=== PATIENT | female | born 1990 | race Caucasian/White ===

== ENCOUNTER 2019-07-19 21:32 | Emergency (ER) | payer SELFPAY ==
[~2019-07-19] VITALS: Ht 162.6 cm; Wt 68.0 kg
[2019-07-19 22:17] VITALS: Ht 162.6 cm; Wt 68.0 kg
[2019-07-19 22:49] LABS: BASOPHILS 0.1 % (0-2); EOSINOPHILS 0.4 % (0-7); HEMOGLOBIN 13.1 g/dL (12-16); IMMATURE GRANULOCYTES 0.2 % (0-5); LYMPHOCYTES 11.6 % (15-50); MCH 29.2 pg (26.0-34.0); MCHC 33.6 g/dL (31.0-37.0); MCV 86.9 fL (80.0-100.0); MONOCYTES 4.5 % (2-11); NEUTROPHILS 83.2 % (40-80); PLATELET COUNT 312 10x3/uL (130-400); RBC 4.49 10x6/uL (4.00-5.40); RDW 14.5 % (11.5-14.5); WBC 11.2 10x3/uL (4.8-10.8)
[2019-07-19 22:57] LABS: ANION GAP 14.6 mmol/L (8-16); CALCIUM 8.9 mg/dL (8.5-10.1); CARBON DIOXIDE 23.8 mmol/L (21.0-32.0); POTASSIUM - SERUM 3.4 mmol/L (3.5-5.1)
[2019-07-19 23:04] LABS: ALBUMIN 4.2 g/dL (3.4-5.0); BILIRUBIN - TOTAL 0.67 mg/dL (0.2-1.3)
--- NOTE | 2019-07-19 23:16 | NUR ---
ATTEMPTED TO ASSESS PATIENT. CURRENTLY CAN NOT ASSESS PATIENT DUE TO IMPAIRED MENTAL STATUS. CAN NOT GIVE ANSWERS TO QUESTIONS. WILL TRY AND THEN WILL RELATE "I DON'T KNOW. I'M SORRY." MOANING, MOVING CONSTANTLY IN THE BED. JUMPING UP IN BED BECAUSE THE MONTOR LEADS WILL MOVE ON HER AND SHE WILL RELATE "WHAT IS IT? WHAT IS THAT?" UNABLE TO FOCUS AND FOLLOW TOPIC OF CONVERSATION. REPORTED TO CHARGE NURSE DIONY THAT PATIENT IS NOT ABLE TO BE ASSESSED AT THIS TIME.
[2019-07-20 00:06] LABS: HCG URINE NEGATIVE (NEGATIVE)
[2019-07-20 00:07] LABS: BILIRUBIN NEGATIVE (NEGATIVE); GLUCOSE NEGATIVE (NEGATIVE); KETONE LARGE mg/dL (NEGATIVE); NITRITE NEGATIVE (NEGATIVE); SPECIFIC GRAVITY 1.025 (1.005-1.020); UROBILINOGEN NORMAL (NORMAL)
[2019-07-20 00:08] LABS: BACTERIA MODERATE /hpf (NEGATIVE); EPITHELIAL CELLS 0-5 /hpf (0-5); RED CELLS - URINE 0-5 /hpf (0-5); UDS - AMPHET POSITIVE QUAL (NEGATIVE); UDS - BARB NEGATIVE QUAL (NEGATIVE); UDS - BENZO NEGATIVE QUAL (NEGATIVE); UDS - COCAINE NEGATIVE QUAL (NEGATIVE); UDS - OPIATE NEGATIVE QUAL (NEGATIVE); UDS - PCP NEGATIVE QUAL (NEGATIVE); UDS - THC NEGATIVE QUAL (NEGATIVE); WHITE CELLS - URINE 0-5 /hpf (NEGATIVE)
[2019-07-20 06:50] VITALS: BP 125/78
== END 2019-07-20 06:51 | disposition home or self-care (01) ==
LOC: D.ER 21:32
PROVIDERS: Family Medicine
DX: F15.10 Other stimulant abuse, uncomplicated (principal); R45.1 Restlessness and agitation; F22 Delusional disorders; R41.0 Disorientation, unspecified